=== PATIENT | male | born 1945 | race Caucasian/White ===

== ENCOUNTER 2017-08-21 22:25 | Emergency (ER) | payer MEDICARE ==
[2017-08-21] MEDS ORDERED: Ondansetron ODT 8 MG TAB ONE (22:42)
[2017-08-21] MEDS ORDERED: Morphine 4 MG/ML Carpuject ONE (22:59)
[2017-08-21 23:07] LABS: #Basophils 0.1 thou/uL (0.0-0.2); #Lymphocytes 0.9 thou/uL (1.20-3.40); #Monocytes 0.6 thou/uL (0.11-0.59); #Neutrophils 10.6 thou/uL (1.40-6.50); %Basophils 0.5 % (0.0-1.0); %Eosinophils 0.2 % (0.0-10.0); %Lymphocytes 7.3 % (21.0-51.0); %Monocytes 4.8 % (0.0-10.0); %Neutrophils 87.2 % (42.0-75.0); Hemoglobin 16.3 g/dL (14.0-18.0); Mean Corpuscular Hemoglobin 30.6 pg (27.0-31.0); Mean Corpuscular Volume 92.6 fL (78.0-98.0); Mean Platelet Volume 6.8 fL (7.4-10.4); Platelet Count 229 thou/uL (130-400); Red Blood Cell (RBC) Count 5.33 mill/uL (4.70-6.10); White Blood Cell (WBC) Count 12.2 thou/uL (4.8-10.8)
[2017-08-21 23:24] LABS: ALT (SGPT) 19 U/L (8-55); AST (SGOT) 29 U/L (5-34); Albumin 4.5 g/dL (3.4-4.8); Alkaline Phosphatase 66 U/L (40-150); Anion Gap 17 mmol/L (10-20); BUN (Urea Nitrogen) 14 mg/dL (8.4-25.7); Bilirubin, Total 2.4 mg/dL (0.2-1.2); Calc. Creatinine Clearance 0 mL/min (70-130); Calcium 9.6 mg/dL (7.8-10.44); Carbon Dioxide 23 mmol/L (23-31); Chloride 105 mmol/L (98-107); Estimated GFR-MDRD 80; Globulin 2.7 g/dL (2.4-3.5); Glucose 171 mg/dL (83-110); Lipase 16 U/L (8-78); Potassium 3.6 mmol/L (3.5-5.1); Protein, Total 7.2 g/dL (5.8-8.1); Sodium 141 mmol/L (136-145)
[2017-08-21] MEDS ORDERED: Tamsulosin HCl 0.4 MG CAP ONE (23:52)
[2017-08-21] MEDS ORDERED: Ketorolac Tromethamine 30 MG/ML VIAL ONE (23:52)
--- NOTE | 2017-08-21 23:57 | CT ---
CT ABDOMEN AND PELVIS WITH CONTRAST: Comparison: None. History: Abdominal pain. Technique: Multiple contiguous axial images were obtained in a CT of the abdomen and pelvis with cont rast. Coronal reformats were performed. FINDINGS: There is a 3 mm calcification in the distal right ureter. There is right hydroureter and moderate rig ht hydronephrosis. Stranding changes are seen surrounding the right kidney which also displays a jennifer yed nephrogram. No hydronephrosis is seen on the left. No left renal calcifications are present. The liver, gallbladder, adrenal glands, spleen, and pancreas are unremarkable. No free air or free fl uid are seen in the abdomen or pelvis. The large and small bowel are unremarkable. The appendix is not definitely seen. No abdominal or pelv ic lymphadenopathy are seen. Degenerative changes are seen in the spine. There is fusion of the sacroiliac joints. Visualized infe rior thorax and abdominal wall soft tissues are unremarkable. IMPRESSION: Right distal ureteral calcification with moderate right hydronephrosis. POS: [facility]
[2017-08-22] MEDS ORDERED: Morphine 4 MG/ML Carpuject ONE (00:01)
== END 2017-08-22 00:42 | disposition home or self-care (01) ==
LOC: SCSER 22:25
DX: N13.2 Hydronephrosis with renal and ureteral calculous obstruction (principal); K21.9 Gastro-esophageal reflux disease without esophagitis; E78.5 Hyperlipidemia, unspecified; I10 Essential (primary) hypertension; Z79.899 Other long term (current) drug therapy; Z79.82 Long term (current) use of aspirin
CPT/HCPCS: 74177; 80053; 82150; 83605; 83690; 85025; 96361; 96374; 96375; 96376; J1885; J2270

== ENCOUNTER 2017-10-12 06:58 | Emergency (ER) | payer MEDICARE ==
--- NOTE | 2017-10-12 07:37 | RAD ---
RIGHT ANKLE 3 VIEWS: HISTORY: Injury. Pain. COMPARISON: None. FINDINGS: Nondisplaced avulsion fracture at the tip of the distal lateral malleolus. Moderate lateral malleola r swelling and medial malleolar swelling. There is evidence of an old medial ligamentous injury. There is a small plantar calcaneal spur. Calcifications along the plantar fascia. Moderate ankle carina int effusion. IMPRESSION: 1. Findings suggesting a nondisplaced avulsion fracture of the lateral malleolus. 2. Moderate bimalleolar swelling. POS: [facility]
== END 2017-10-12 07:48 | disposition home or self-care (01) ==
LOC: SCSER 06:58
DX: S82.64XA Nondisplaced fracture of lateral malleolus of right fibula, initial encounter for closed fracture (principal); K21.9 Gastro-esophageal reflux disease without esophagitis; E78.00 Pure hypercholesterolemia, unspecified; I10 Essential (primary) hypertension; Z79.82 Long term (current) use of aspirin; Z79.899 Other long term (current) drug therapy; X50.1XXA Overexertion from prolonged static or awkward postures, initial encounter